=== PATIENT | male | born 1995 | race Caucasian/White ===

== ENCOUNTER 2020-03-17 20:49 | Emergency (ER) | payer MEDICAID ==
[~2020-03-17 20:49] MED LIST: IBUP-1984 PO
--- NOTE | 2020-03-17 20:55 | NUR ---
PT LEFT WITHOUT BEING SEEN,
== END 2020-03-17 20:57 | disposition left against medical advice (07) ==
LOC: ER 20:49
DX: N50.819 Testicular pain, unspecified (principal); Z53.21 Procedure and treatment not carried out due to patient leaving prior to being seen by health care provider